=== PATIENT | female | born 1955 | race Caucasian/White ===

== ENCOUNTER 2021-08-15 11:12 | Observation (INO) | payer BC ==
--- OUTSIDE RECORDS SUMMARY | 2021-08-15 11:17 | XMS REPORT | Continuity of Care Document ---
:1955 Author Organization [facility] t Address [address] [place] [address] Care Team Providers Name Role Phone Grisel Marlyn Ferrara Attending Clinician Unavailable DOROTHY Attending Clinician Unavailable MD SUZANNE DE LA CRUZ Attending Clinician Unavailable Physician, Primary or Family Admitting Clinician UnavailMD SUZANNE Abel Admitting Clinician Unavailable Payers Payer Name Policy Type Policy Number Effective Date Expiration Date S ource Problems This patient has no known problems. Allergies, Adverse Reactions, Alerts Allergy Allergy Status Severity Reaction(s) Onset Inactive Treating Comm ents Source Name Type Date Date Clinician No Known DA Active U 2015-06 [facility] 0[facility]25 [facility] [facility] 00:[facility]: d 00 [facility] No Known DA Active U 2015-06 [facility] Medications This patient has no known medications. Procedures This patient has no known procedures. Encounters Start End Encounter Admission Attending Care Care Encounter Source Date/Time Date/Time Type Type Clinicians Facility Department ID 2020-08-23 2020-08-23 Outpatient KELLY Recinos CLARE AMRIK [id number] 3-20 [facility] 12:00:00 12:00:00 Marlyn [id number] [facility] 2020-05-21 2020-05-21 Outpatient [facility] [id number] [place] 00:00:00 00:00:00 [place] [address] 2020-05-17 2020-05-17 Outpatient [facility] [id number] [place] 00:00:00 00:00:00 [place] [address] 2019-07-13 2019-07-13 Outpatient KELLY Recinos, CLARE ROWLEY [id number] 3-20 [facility] 12:00:00 12:00:00 Marlyn [id number] [facility] Results Test Description Test Time Test Comments Results Result Comments Source SARS-CoV-2 (COVID-19) RNA [Presence] in Respiratory sp ecimen by 2020-05-17 20:30:37 DHAVAL with probe detection Test Item Value Reference Range Interpretation Comme nts SARS-CoV-2 (COVID-19) RNA [Presence] in Respiratory Not detected No t-Detected specimen by DHAVAL with probe detection (test code = 83264-5)
[2021-08-15] MEDS ORDERED: HYDROMORPHONE HCL 1 MG/ML INJ IV PRN (12:15)
[2021-08-15 12:46] LABS: Absolute Lymphocytes (CBC) 0.8 K/uL (0.7-4.9); Hematocrit 40.6 % (36.0-45.0); Lymphocytes % 19.8 % (15.3-44.8); MPV 7.9 fL (7.6-11.3); RBC Red Blood Cell Count 4.71 M/uL (3.86-4.86)
[2021-08-15 12:52] LABS: Protime INR 0.9
[2021-08-15] MEDS ORDERED: ACETAMINOPHEN 325 MG TABLET PO PRN (13:00)
[2021-08-15] MEDS ORDERED: ONDANSETRON 4 MG (ODT) TAB PO PRN (13:00)
[2021-08-15] MEDS ORDERED: DIPHENHYDRAMINE 25 MG TAB/CAP PO PRN (13:00)
[2021-08-15] MEDS ORDERED: ONDANSETRON 4 MG/2 ML VIAL IV PRN (13:00)
[2021-08-15] MEDS ORDERED: LOPERAMIDE HCL 2 MG CAPSULE PO PRN (13:00)
[2021-08-15] MEDS ORDERED: POLYETHYL GLY 3350 17 GM/DOSE PO PRN (13:00)
[2021-08-15] MEDS ORDERED: NACHLORIDE 0.45% 1,000 ML IV SCH (13:00)
[2021-08-15 13:14] LABS: Urine Appearance CLEAR (Clear); Urine Blood NEGATIVE (Negative); Urine Color YELLOW (Yellow); Urine Glucose NEGATIVE (Negative); Urine Protein NEGATIVE (Negative); Urine Specific Gravity <=1.005 (1.005-1.030); Urine Urobilinogen 0.2 mg/dL (0.2-1.0)
[2021-08-15 13:19] LABS: Urine Bilirubin 1+ (Negative); Urine Microscopic Reflex ORDER UMIC
[2021-08-15 13:32] LABS: Urine Bacteria 20-50 /HPF (<20); Urine RBC <5 /HPF (NONE SEEN)
[2021-08-15 13:34] VITALS: BMI 21.4
[2021-08-15 13:42] LABS: Albumin 3.6 g/dL (3.4-5.0); Alkaline Phosphatase 740 U/L (45-117); BUN Blood Urea Nitrogen 8 mg/dL (7-18); Bicarbonate 26 mmol/L (21-32); Bilirubin Direct 4.6 mg/dL (0-0.2); Glucose Level 88 mg/dL (74-106); Magnesium 2.1 mg/dL (1.8-2.4); Phosphorus 3.1 mg/dL (2.5-4.9); Potassium 3.7 mmol/L (3.5-5.1); Protein, Total 7.5 g/dL (6.4-8.2); Sodium Level 135 mmol/L (136-145)
[2021-08-15 13:45] LABS: ALT/SGPT 627 U/L (12-78); AST/SGOT 387 U/L (15-37)
[2021-08-15 13:46] LABS: Bilirubin Total 5.8 mg/dL (0.2-1.0)
--- NOTE | 2021-08-15 14:42 | RAD REPORT ---
EXAM DESCRIPTION: RADChest Pa And Lat (2 Views)08/15/2021 2:20 pm CLINICAL HISTORY: Abdominal pain COMPARISON: None FINDINGS: Mild patchy opacities within the lingula and left upper lobe. Mild right lung opacities suspected. Heart is normal size. Lungs are mildly hyperaerated IMPRESSION: Mild bilateral patchy lung opacities. These may indicate pneumonia. Follow-up chest x-ra y in 1 month recommended to help exclude underlying mass.
[2021-08-15] MEDS: CEFOXITIN 1 GM in NA CHLORIDE 0.9% 50 ML IVPB SCH (16:42)
--- NOTE | 2021-08-15 16:43 | RAD REPORT ---
EXAM DESCRIPTION: CT - Abdomen Pelvis W Contrast - 08/15/2021 3:10 pm CLINICAL HISTORY: Abdominal pain COMPARISON: none. TECHNIQUE: Computed axial tomography of the abdomen pelvis was obtained. 100 cc Isovue-300 was admin istered intravenously. Oral contrast was not requested which limits evaluation of bowel. All CT scans are performed using dose optimization technique as appropriate and may include automated exposure control or mA/KV adjustment according to patient size. FINDINGS: Lingular opacity. Moderate dilatation of the intrahepatic biliary tree. Moderate dilatation of the common hepatic and c ommon bile ducts. Gallbladder is distended. A 3.8 centimeter soft tissue structure lies between the p ancreatic head and second portion of the duodenum which likely obstructs the common bile duct. A port ion of it contains an air contrast. Spleen, adrenals and kidneys are unremarkable. No adnexal mass. Moderate amount of stool within the colon. There is no evidence of diverticulitis. IMPRESSION: 3.8 centimeter soft tissue structure obstructing the common bile duct. It is unclear whe ther this represents a combination of pancreatic mass and duodenal diverticulum or all is a duodenal diverticulum. It is recommended that the patient have an MRI on August 16, 2021 for further evaluat ion Lingular opacity could represent atelectasis, pneumonia or pneumonitis
[2021-08-15] MEDS ORDERED: POTASSIUM 25 MEQ EFFERV TAB PO ONE (18:00)
[2021-08-15] MEDS: PANTOPRAZOLE 40 MG INJ IV SCH (20:58)
[2021-08-15] MEDS: SODIUM CHLORIDE 0.9% 20 ML VIAL IV SCH (21:00)
[2021-08-16 05:45] LABS: Absolute Lymphocytes (CBC) 1.2 K/uL (0.7-4.9); Hematocrit 39.1 % (36.0-45.0); Lymphocytes % 34.1 % (15.3-44.8); MPV 7.7 fL (7.6-11.3); RBC Red Blood Cell Count 4.55 M/uL (3.86-4.86)
[2021-08-16 06:16] LABS: BUN Blood Urea Nitrogen 6 mg/dL (7-18); Bicarbonate 27 mmol/L (21-32); Glucose Level 86 mg/dL (74-106); Magnesium 2.2 mg/dL (1.8-2.4); Potassium 4.4 mmol/L (3.5-5.1); Sodium Level 136 mmol/L (136-145)
[2021-08-16] MEDS: CEFOXITIN 1 GM in NA CHLORIDE 0.9% 50 ML IVPB SCH ×3 (08:57)
[2021-08-16] MEDS: SODIUM CHLORIDE 0.9% 20 ML VIAL IV SCH (08:57)
[2021-08-16] MEDS: PANTOPRAZOLE 40 MG INJ IV SCH (08:58)
[2021-08-16] MEDS ORDERED: ENOXAPARIN 40 MG/0.4 ML SQ SCH (09:00)
--- NOTE | 2021-08-16 09:37 | P.DS ---
Admission Date: 08/15/21 Discharge Date: 08/16/21 Disposition: ROUTINE DISCHARGE Discharge Condition: FAIR - Problems (1) Cholestatic jaundice Current Visit: Yes Status: Acute (2) Duodenal diverticulum Current Visit: Yes Status: Acute Hospital Course: SHE WAS WELL UNTIL A FEW DAYS AGO STARTED HAVING EPIG PAIN, GERD ETC. SHE HAS CHOLESTASIS WITH BILIRUBIN TO [address] SCAN SHOWS POSSIBLE DUODENAL DIVERTICULUM WITH BILISARY DUCT BLOCKAGE. I TALKED TO DR. SINGH WE HAVE NO GI MANAGER CORPORATE COMMUNICATIONS. HE WILL TAKE CARE OF STENT FOR BIILIARY DUCT ON WEDNESDAY. PATIENT IS AWARE. I EXPLAINED EVERYTHING TO HER. I WILL SEE HER IN A WEEK. Vital Signs/Physical Exam: Temp Pulse Resp BP Pulse Ox 98.3 F 67 16 111/58 L 98 08/16/21 04:00 08/16/21 04:00 08/16/21 04:00 08/16/21 04:00 08/16/21 04:00 Laboratory Data at Discharge: WBC 3.50 K/uL (4.3-10.9) L 08/16/21 05:23 Hgb 12.9 g/dL (12.0-15.0) 08/16/21 05:23 Hct 39.1 % (36.0-45.0) 08/16/21 05:23 Plt Count 202 K/uL (152-406) 08/16/21 05:23 PT 10.3 SECONDS (9.5-12.5) 08/15/21 12:24 INR 0.90 08/15/21 12:24 APTT 37.0 SECONDS (24.3-36.9) H 08/15/21 12:24 Sodium 136 mmol/L (136-145) 08/16/21 05:23 Potassium 4.4 mmol/L (3.5-5.1) 08/16/21 05:23 BUN 6 mg/dL (7-18) L 08/16/21 05:23 Creatinine 0.65 mg/dL (0.55-1.3) 08/16/21 05:23 Glucose 86 mg/dL (74-106) 08/16/21 05:23 Phosphorus 3.1 mg/dL (2.5-4.9) 08/15/21 12:24 Magnesium 2.2 mg/dL (1.8-2.4) 08/16/21 05:23 Total Bilirubin 5.8 mg/dL (0.2-1.0) H* 08/15/21 12:24 AST 387 U/L (15-37) H* 08/15/21 12:24 ALT 627 U/L (12-78) H* 08/15/21 12:24 Alkaline Phosphatase 740 U/L (45-117) H 08/15/21 12:24 Home Medications: Escitalopram [Lexapro*] 10 mg PO DAILY 08/15/21 Pantoprazole [Protonix Tab*] 40 mg PO DAILY #90 tab 08/16/21 New Medications: Pantoprazole [Protonix Tab*] 40 mg PO DAILY #90 tab
[2021-08-16 10:25] VITALS: BP 113/55; TEMP 98.2
[2021-08-16 13:03] VITALS: O2SAT 98
[2021-08-20 15:28] LABS: Vitamin D 1,25-Dihydroxy Total 75 pg/mL (18-72); Vitamin D,1,25-OH2, D2 <8 pg/mL
== END 2021-08-16 11:50 | disposition home or self-care (01) ==
LOC: 2ND 11:12
PROVIDERS: ADMIT Internal Medicine; ATTEND Internal Medicine
DX: K83.1 Obstruction of bile duct (principal); R17 Unspecified jaundice; K57.10 Diverticulosis of small intestine without perforation or abscess without bleeding; K21.9 Gastro-esophageal reflux disease without esophagitis; F41.9 Anxiety disorder, unspecified; M85.80 Other specified disorders of bone density and structure, unspecified site
CPT/HCPCS: 93005; 87040; 87088; 85025 ×2; 87086; 80048 ×2; 36415 ×2; 83735 ×2; 84100; 85610; 80076; 85730; 82652; 84443; 82607; 74177; 71046; Q9967; C9113 ×2; J1650; J0694 ×3; G0379; G0378 ×2; 81003; 81015

== ENCOUNTER 2021-09-23 14:03 | Inpatient (IN) | payer BC, OTHER ==
--- OUTSIDE RECORDS SUMMARY | 2021-09-23 14:08 | XMS REPORT | Continuity of Care Document ---
:1955 Author Organization [facility] t Address [address] [place] [address] Care Team Providers Name Role Phone GriselMirellaMarlyn R Attending Clinician Unavailable DOROTHY Attending Clinician Unavailable [...] Allergie 0-25 [place] [facility] 00:00: d 00 [facility] Center No Known DA Active U 2015-06 [facility] 0[facility] Medications This patient has no known medications. Procedures This patient has no known procedures. Encounters Start End Encounter Admission Attending Care Care Encounter Source Date/Time Date/Time Type Type Clinicians Facility Department ID 2020-08-23 2020-08-23 Outpatient NICOLE ArceMICHELA AMRIK [id number] 3-20 [facility] 12:00:00 12:00:00 Marlyn [id number] [facility] 2020-05-21 2020-05-21 Outpatient [facility] [id number] [place] 00:00:00 00:00:00 [place] [address] 2020-05-17 2020-05-17 Outpatient [facility] [id number] [place] 00:00:00 00:00:00 [place] [address] 2019-07-13 2019-07-13 Outpatient KELLY Recinos, NICOLE AMRIK [id number] 3-20 [facility] 12:00:00 12:00:00 Marlyn [id number] [facility] Results Test Description Test Time Test Comments Results Result Comments Source SARS-CoV-2 (COVID-19) RNA [Presence] in Respiratory sp ecimen by 2020-05-17 20:30:37 DHAVAL with probe detection Test Item Value Reference Range Interpretation Comme nts SARS-CoV-2 (COVID-19) RNA [Presence] in Respiratory Not detected No t-Detected specimen by DHAVAL with probe detection (test code = 22010-4)
[2021-09-23 16:02] VITALS: BMI 21.0
[2021-09-23] MEDS ORDERED: PNEUMOCOCCAL VACCINE 0.5 ML IMVAC ONE (17:00)
[2021-09-23] MEDS ORDERED: POLYETHYL GLY 3350 17 GM/DOSE PO PRN (18:00)
[2021-09-23] MEDS ORDERED: ONDANSETRON 4 MG (ODT) TAB PO PRN (18:00)
[2021-09-23] MEDS ORDERED: LOPERAMIDE HCL 2 MG CAPSULE PO PRN (18:00)
[2021-09-23] MEDS ORDERED: DIPHENHYDRAMINE 25 MG TAB/CAP PO PRN (18:00)
[2021-09-23] MEDS ORDERED: ACETAMINOPHEN 325 MG TABLET PO PRN (18:00)
[2021-09-23] MEDS ORDERED: ONDANSETRON 4 MG/2 ML VIAL IV PRN (18:00)
[2021-09-23] MEDS ORDERED: NACHLORIDE 0.45% 1,000 ML IV SCH ×2 (18:00→19:00)
[2021-09-23] MEDS ORDERED: INFLUENZA VACCINE (for 6+ mo) 0.5 ML DOSE IMVAC ONE (18:00)
[2021-09-23 19:40] LABS: Urine Appearance Clear (Clear); Urine Bilirubin Negative (Negative); Urine Blood Trace-intact (Negative); Urine Color Yellow (Yellow); Urine Glucose Negative (Negative); Urine Microscopic Reflex ORDER UMIC; Urine Protein Negative (Negative); Urine Urobilinogen 0.2 mg/dL (0.2-1.0)
[2021-09-23 19:55] LABS: Absolute Lymphocytes (CBC) 1.3 K/uL (0.7-4.9); Hematocrit 31.6 % (36.0-45.0); Lymphocytes % 17.3 % (15.3-44.8); MPV 7.1 fL (7.6-11.3); RBC Red Blood Cell Count 3.85 M/uL (3.86-4.86)
[2021-09-23 20:02] LABS: Protime INR 1.2
[2021-09-23 20:16] LABS: ALT/SGPT 193 U/L (12-78); AST/SGOT 102 U/L (15-37); Albumin 2.8 g/dL (3.4-5.0); Alkaline Phosphatase 702 U/L (45-117); BUN Blood Urea Nitrogen 7 mg/dL (7-18); Bicarbonate 26 mmol/L (21-32); Bilirubin Direct 1.2 mg/dL (0-0.2); Bilirubin Total 1.6 mg/dL (0.2-1.0); Glucose Level 110 mg/dL (74-106); Phosphorus 3.1 mg/dL (2.5-4.9); Potassium 3.5 mmol/L (3.5-5.1); Protein, Total 6.8 g/dL (6.4-8.2); Sodium Level 134 mmol/L (136-145)
[2021-09-23 20:21] LABS: Urine Bacteria <20 /HPF (<20); Urine RBC <5 /HPF (NONE SEEN)
--- NOTE | 2021-09-23 22:05 | RAD REPORT ---
EXAM DESCRIPTION: CT - Chest Abdomen Pelvis W Cont - 09/23/2021 9:50 pm CLINICAL HISTORY: Chest and abdomen pain. fever of unknown orgin COMPARISON: Abdomen Pelvis W Contrast dated 08/15/2021; Chest Pa And Lat (2 Views) dated 09/17/2021; Chest Pa And Lat (2 Views) dated 08/15/2021 TECHNIQUE: Approximately 100 mL nonionic IV contrast was administered to the patient. All CT scans are performed using dose optimization technique as appropriate and may include automated exposure control or mA/KV adjustment according to patient size. FINDINGS: There are multiple bilateral peripherally located lung opacities present.On the left the l argest opacity measures 38 mm and on the right in the inferior anterior right upper lobe measures 24 mm.No pleural or pericardial effusion.No intrathoracic adenopathy. Moderate intrahepatic biliary tree dilatation is again noted. Common bile duct is moderately dilated. The gallbladder is also distended. There is an abnormal soft tissue structure noted in the region of the pancreatic head/duodenal C-loop containing air and soft tissue density material. This is similar in appearance compared to 08/15/2021. No bowel obstruction, free air, free fluid or abscess. Nonvisualization of the appendix. Moderate sto ol is present throughout the colon. Sigmoid diverticulosis coli without diverticulitis. No pathologic lymphadenopathy in the abdomen or pelvis. Moderate lower lumbar spondylosis. IMPRESSION: Multiple peripherally located lung opacities are noted in both lungs likely representing areas of infection. Septic emboli is a possibility. Moderate biliary tree dilatation is seen with common duct dilatation and gallbladder distention. Soft tissue density abnormality is seen in the region of the duodenal C-loop pancreatic head also contain ing air. A necrotic mass is a possibility. ERCP would be recommended for direct visualization of this region.
[2021-09-24 03:51] LABS: Absolute Lymphocytes (CBC) 1.3 K/uL (0.7-4.9); Hematocrit 31.8 % (36.0-45.0); Lymphocytes % 21.7 % (15.3-44.8); MPV 7.5 fL (7.6-11.3); RBC Red Blood Cell Count 3.81 M/uL (3.86-4.86)
[2021-09-24 04:00] LABS: BUN Blood Urea Nitrogen 6 mg/dL (7-18); Bicarbonate 28 mmol/L (21-32); Glucose Level 95 mg/dL (74-106); Magnesium 2.2 mg/dL (1.8-2.4); Potassium 3.6 mmol/L (3.5-5.1); Sodium Level 135 mmol/L (136-145)
[2021-09-24] MEDS ORDERED: POTASSIUM CL SA 10 MEQ TAB PO ONE (04:29)
[2021-09-24] MEDS: ESCITALOPRAM 20 MG TAB PO SCH ×2 (08:40→08:51)
[2021-09-24] MEDS: PANTOPRAZOLE 40MG TABLET PO SCH ×2 (08:40→08:51)
[2021-09-24] MEDS ORDERED: Meropenem 1,000 MG in NA CHLORIDE 0.9% 100 ML IV SCH (09:00)
[2021-09-24] MEDS ORDERED: ENOXAPARIN 40 MG/0.4 ML SQ SCH (09:00)
[2021-09-24 10:01] VITALS: O2SAT 97
--- NOTE | 2021-09-24 14:10 | ECHO ---
HEIGHT: 5 ft 7 in WEIGHT: 134 lb 8 oz DATE OF STUDY: 09/24/[address]: Jose Manuel Baer MD 2-DIMENSIONAL: YES M.MODE: YES DOPPLER: YES COLOR FLOW: YES TDS: PORTABLE: DEFINITY: BUBBLE STUDY: DIAGNOSIS: VEGETATION CARDIAC HISTORY: CATHERIZATION: SURGERY: PROSTHETIC VALVE: PACEMAKER: MEASUREMENTS (cm) DIASTOLIC (NORMALS) SYSTOLIC (NORMALS) IVSd 0.9 (0.6-1.2) LA Diam 3.1 (1.9-4.0) LVEF 55% LVIDd 4.7 (3.5-5.7) LVIDs 3.3 (2.0-3.5) %FS 29% LVPWd 0.9 (0.6-1.2) Ao Diam 2.4 (2.0-3.7) 2 DIMENSIONAL ASSESSMENT: RIGHT ATRIUM: NORMAL LEFT ATRIUM: NORMAL RIGHT VENTRICLE: NORMAL LEFT VENTRICLE: NORMAL TRICUSPID VALVE: NORMAL MITRAL VALVE: NORMAL PULMONIC VALVE: NORMAL AORTIC VALVE: NORMAL PERICARDIAL EFFUSION: NONE AORTIC ROOT: NORMAL LEFT VENTRICULAR WALL MOTION: NORMAL DOPPLER/COLOR FLOW: NORMAL COMMENTS: NORMAL 2-DIMENSIONAL ECHOCARDIOGRAM WITH DOPPLER. NO VEGETATION. NO EFFUSION. TECHNOLOGIST: KAILEY BARILLAS
--- NOTE | 2021-09-24 17:43 | P.DS ---
Admission Date: 09/24/21 Discharge Date: 09/24/21 Disposition: TRANSFER TO [facility] Discharge Condition: GOOD - Problems (1) Septic embolism Current Visit: Yes Status: Acute (2) Cholestatic jaundice Current Visit: No Status: Acute (3) Duodenal diverticulum Current Visit: No Status: Acute Vital Signs/Physical Exam: Temp Pulse Resp BP Pulse Ox 99.9 F 77 16 127/61 96 09/24/21 12:00 09/24/21 12:00 09/24/21 12:00 09/24/21 12:00 09/24/21 12:00 Laboratory Data at Discharge: WBC 5.8 K/uL (4.3-10.9) D 09/24/21 03:22 Hgb 10.8 g/dL (12.0-15.0) L 09/24/21 03: Hct 31.8 % (36.0-45.0) L 09/24/21 03:22 Plt Count 277 K/uL (152-406) 09/24/21 03: PT 13.2 SECONDS (9.5-12.5) H 09/23/21 19:25 INR 1.20 09/23/21 19:25 APTT 37.2 SECONDS (24.3-36.9) H 09/23/21 19:25 Sodium 135 mmol/L (136-145) L 09/24/21 03:22 Potassium 3.6 mmol/L (3.5-5.1) 09/24/21 03:22 BUN 6 mg/dL (7-18) L 09/24/21 03:22 Creatinine 0.57 mg/dL (0.55-1.3) 09/24/21 03:22 Glucose 95 mg/dL (74-106) 09/24/21 03:22 Phosphorus 3.1 mg/dL (2.5-4.9) 09/23/21 19:25 Magnesium 2.2 mg/dL (1.8-2.4) 09/24/21 03:22 Total Bilirubin 1.6 mg/dL (0.2-1.0) H 09/23/21 19:25 AST 102 U/L (15-37) H 09/23/21 19:25 ALT 193 U/L (12-78) H 09/23/21 19:25 Alkaline Phosphatase 702 U/L (45-117) H 09/23/21 19:25 Home Medications: Escitalopram [Lexapro*] 20 mg PO DAILY 08/15/21 Pantoprazole [Protonix Tab*] 40 mg PO DAILY #90 tab 08/16/21
[2021-09-24 18:08] VITALS: BP 127/75
[2021-09-24 18:18] VITALS: TEMP 98.7
== END 2021-09-24 19:45 | disposition short-term general hospital (02) | DRG 392 ==
LOC: ERHOLD 14:03 → 2ND 15:47 → OBSVTOIN 09-24 12:15
PROVIDERS: ADMIT Internal Medicine; ATTEND Internal Medicine
DX: K57.12 Diverticulitis of small intestine without perforation or abscess without bleeding (principal); I76 Septic arterial embolism; R17 Unspecified jaundice; I74.9 Embolism and thrombosis of unspecified artery; Z79.899 Other long term (current) drug therapy; Z20.822 Contact with and (suspected) exposure to COVID-19
CPT/HCPCS: 36415; 71260; 74177; 80048; 80076; 81003; 81015; 83605; 83735; 84100; 84145; 85025; 85610; 85652; 85730; 86140; 87040; 93306; G0378; G0379; J1650; J2185; Q9967; U0003